=== PATIENT | male | born 1995 | race Hispanic/Latino ===

== ENCOUNTER 2023-11-27 14:14 | Emergency (ER) | payer OTHER ==
[~2023-11-27] VITALS: Ht 172.7 cm; Wt 88.5 kg
[2023-11-27 20:03] VITALS: BP 126/86; PULSE 72; RESP 18; O2SAT 98
[2023-11-27] MEDS ORDERED: POLY17PO4 PO (20:03)
[2023-11-27] MEDS ORDERED: IBUP-2070 PO (20:03)
[2023-11-27] MEDS ORDERED: TAMS-1 PO (20:03)
[2023-11-27] MEDS: TAMSULOSIN HCL 0.4 MG CAP.ER.24H PO ONE (20:04)
== END 2023-11-27 20:14 | disposition home or self-care (01) ==
LOC: EDH 14:14
DX: N20.0 Calculus of kidney (principal); K59.00 Constipation, unspecified
CPT/HCPCS: 74018; 74176

== ENCOUNTER 2024-10-14 11:25 | Emergency (ER) | payer OTHER ==
[~2024-10-14] VITALS: Ht 172.7 cm; Wt 90.7 kg
[~2024-10-14 11:25] MED LIST: IBUP-2070 PO; POLY17PO4 PO; TAMS-55 PO
[2024-10-14] MEDS: ketOROlac 15MG/ML VIAL (15MG/ML) IV ONE ×2 (11:44→12:30)
[2024-10-14] MEDS: hydroMORPHone 0.5 MG SYG (0.5MG/0.5ML) IVP ONE (11:44)
[2024-10-14] MEDS: LACTATED RINGERS 1000ML 1,000 ML IV ONE (11:44)
[2024-10-14 11:48] LABS: BASOPHILS # (AUTO) 0.08 K/uL (0.00-0.20); EOSINOPHILS % (AUTO) 4.8 % (0.0-8.0); IMMATURE GRANULOCYTE ABSOLUTE 0.03 K/uL (0-1); LYMPHOCYTES # (AUTO) 3.7 K/uL (1.0-4.8); LYMPHOCYTES % (AUTO) 44.6 % (21.0-51.0); MEAN CORPUSCULAR HGB CONC 33.5 g/dL (32.0-36.0); MEAN CORPUSCULAR VOLUME 86.5 fL (79-99); MONOCYTES # (AUTO) 0.5 K/uL (0.1-1.0); MONOCYTES % (AUTO) 5.8 % (3.0-13.0); NEUTROPHILS # (AUTO) 3.6 K/uL (1.8-7.7); NEUTROPHILS % (AUTO) 43.4 % (40.0-77.0); PLATELET COUNT (AUTO) 322 K/uL (130-400); RED BLOOD CELL COUNT(AUTO) 4.97 MIL/uL (4.50-6.20); RED CELL DISTRIBUTION WIDTH 12.7 % (11.0-15.5); WHITE BLOOD COUNT (AUTO) 8.3 K/uL (4.8-10.8)
[2024-10-14 11:52] LABS: ADD UA MICROSCOPIC YES; APPEARANCE,URINE CLEAR (CLEAR); BILIRUBIN,URINE NEGATIVE (NEGATIVE); COLOR,URINE LIGHT-YELLOW (YELLOW); GLUCOSE, URINE (UA) NEGATIVE (NEGATIVE); KETONES,URINE NEGATIVE (NEGATIVE); LEUKOCYTE ESTERASE ,URINE NEGATIVE Leu/uL (NEGATIVE); NITRATE,URINE NEGATIVE (NEGATIVE); OCCULT BLOOD,URINE MODERATE (NEGATIVE); PH,URINE 5.5 (5.0-8.0); PROTEIN,URINE 10 mg/dL (NEGATIVE); UROBILINOGEN,URINE 0.2 mg/dL (0.2-1.0)
[2024-10-14 11:53] LABS: MUCUS,URINE FEW LPF (None Seen); SQUAMOUS EPITHELIAL CELL,UR RARE /HPF (0-2); WBC,URINE 0-1 /HPF (0-1)
--- NOTE | 2024-10-14 11:56 | ERN ---
General Chief Complaint: Flank Pain Stated Complaint: PAIN ON RIGHT SIDE OF THE BODY Time Seen by MD: 11:28 History of Present Illness Initial Comments 29-year-old male who presents for sudden onset colicky severe right flank pain that radiates to the right groin. Nausea without vomiting. He was had a kidney stone in the past and this appears to be the same. Allergies: Coded Allergies: No Known Drug Allergies (Unverified Allergy, Unknown, 11/27/23) Home Meds Active Scripts Hydrocodone/Acetaminophen (Hydrocodon-Acetaminophen 5-325) 5 Mg-325 Mg Tablet, 1-2 TAB PO QIDP PRN for pain for 5 Days, #20 TAB 0 Refills Prov:LAUREANO PRICE DO 10/14/24 Ondansetron (Ondansetron Odt) 4 Mg Tab.rapdis, 1 TAB PO Q6HPRN PRN for nausea/vomiting for 5 Days, #15 TAB 0 Refills Prov:LAUREANO PRICE DO 10/14/24 Ibuprofen (Ibuprofen 800 mg Tab) 800 Mg Tab, 800 MG PO Q6H PRN for PAIN, #30 TAB Prov:LAUREANO PRICE DO 10/14/24 Ibuprofen (Ibuprofen) 600 Mg Tablet, 600 MG PO Q6H PRN for PAIN, #30 TAB Prov:KELLI MALCOLM [facility] 11/27/23 Tamsulosin HCl (Flomax) 0.4 Mg Cap.er.24h, 0.4 MG PO DAILY, #14 CAPSULE.DR Prov:KELLI MALCOLM [facility] 11/27/23 Polyethylene Glycol 3350 (Miralax) 17 Gram Powd.pack, 17 GM PO DAILY for 5 Days, #5 EA Prov:KELLI MALCOLM [facility] 11/27/23 Past Medical History Past Medical History: Kidney Stone Past Surgical History: None Family History Family History: Negative Social History Social History: Negative, Lives with family ROS Dictation CONSTITUTIONAL: No chills, no fever, no weakness, no diaphoresis, no malaise. HEAD/FACE: No signs of trauma. EENT: No eye pain, no blurred vision, no tearing, no double vision, no ear pain, no ear discharge, no nose pain, no nasal congestion, no throat pain, no throat swelling, no mouth pain. RESPIRATORY: No cough, no orthopnea, no SOB, no stridor, no wheezing. CARDIOVASCULAR: No chest pain, no edema, no palpitations, no syncope. GASTROINTESTINAL/ABDOMINAL: Right flank pain GENITOURINARY: No abnormal discharge, no dysuria, no frequent urination, no hematuria. No complaints of pain in the genitals. MUSCULOSKELETAL: No back pain, no gout, no joint pain, no joint swelling, no muscle pain, no muscle stiffness, no neck pain. INTEGUMENTARY: No change in color, no change in hair/nails, no dryness, no lesion, no lumps, no rash. NEUROLOGICAL/PSYCH: No anxiety, not depressed, no emotional problem, no headache, no numbness, no pre-existing deficit, no history of seizures, no tremors, no weakness. HEMATOLOGIC/LYMPHATIC: Not anemic, no history of blood clots, no apparent bleeding, no bruising, glands not swollen. All Systems Negative, Except as Noted. Physical Exam Physical Exam Dictation VITAL SIGNS: Reviewed. GENERAL APPEARANCE: Alert, oriented x3, moderate distress due to pain HEAD AND FACE: Non-traumatic. EYES: PERRL, pink conjunctivas, eyelid no trauma, anterior chamber clear. EARS: Pinnas intact and no signs of trauma or erythema. Ear canals clear and no discharge. TMs no erythema. NOSE: No discharge, no bleeding. OROPHARYNX: Mouth normal, teeth no caries, tongue pink. Pharynx clear, no erythema. Tonsils no exudates, no abscesses noted. Mucous membrane moist. NECK: Supple, non-tender, no thyromegaly, no masses, no JVD, no bruits. BREAST: Deferred. CHEST: No tenderness, no crepitus, no paradoxical movement, no retractions. LUNGS: Clear, well-ventilated, symmetric, no rales, no wheezing, no rhonchi, no stridor, good breath sounds bilaterally. HEART: Regular rate, regular rhythm, no murmur, no gallops. VASCULAR: No peripheral edema. ABDOMEN: Soft, positive bowel sounds, nondistended, no guarding, nontender, no rebound, no masses no hepatomegaly, no splenomegaly, no Ferrara's sign, no hernias. RECTAL: Deferred. GENITAL: Deferred. NEUROLOGICAL: Normal speech, gross motor function intact, gross sensory function intact. MUSCULOSKELETAL: Neck nontender, full range of motion, back nontender, full range of motion. EXTREMITIES: Nontender, full range of motion. SKIN: Color pink, dry, no turgor, no rash, no lacerations, no abrasions, no contusions. LYMPHATICS: Deferred. Results Laboratory and Microbiology Lab and Micro Result Laboratory Tests Test 10/14/24 11:43 10/14/24 11:44 White Blood Count 8.3 K/uL (4.8-10.8) Red Blood Count 4.97 MIL/uL (4.50-6.20) Hemoglobin 14.4 g/dL (14.0-18.0) Hematocrit 43.0 % (42-54) Mean Corpuscular Volume 86.5 fL (79-99) Mean Corpuscular Hemoglobin 29.0 pg (27.0-33.0) Mean Corpuscular Hemoglobin Concent 33.5 g/dL (32.0-36.0) Red Cell Distribution Width 12.7 % (11.0-15.5) Platelet Count 322 K/uL (130-400) Mean Platelet Volume 8.1 fL (7.5-10.5) Immature Granulocyte % (Auto) 0.4 % (0-1) Neutrophils (%) (Auto) 43.4 % (40.0-77.0) Lymphocytes (%) (Auto) 44.6 % (21.0-51.0) Monocytes (%) (Auto) 5.8 % (3.0-13.0) Eosinophils (%) (Auto) 4.8 % (0.0-8.0) Basophils (%) (Auto) 1.0 % (0.0-5.0) Neutrophils # (Auto) 3.6 K/uL (1.8-7.7) Lymphocytes # (Auto) 3.7 K/uL (1.0-4.8) Monocytes # (Auto) 0.5 K/uL (0.1-1.0) Eosinophils # (Auto) 0.40 K/uL (0.00-0.70) Basophils # (Auto) 0.08 K/uL (0.00-0.20) Absolute Immature Granulocyte (auto 0.03 K/uL (0-1) Nucleated Red Blood Cells 0.0 % (0.0-0.19) Sodium Level 143 mmol/L (136-145) Potassium Level 3.9 mmol/L (3.5-5.1) Chloride Level 104 mmol/L (101-111) Carbon Dioxide Level 30 mmol/L (21-32) Blood Urea Nitrogen 11 mg/dL (7-18) Creatinine 1.1 mg/dL (0.5-1.3) Glomerular Filtration Rate Calc 92 mL/min (>90) Random Glucose 112 mg/dL (70-105) H Total Calcium 9.2 mg/dL (8.5-10.1) Total Bilirubin 0.4 mg/dL (0.2-1.0) Direct Bilirubin 0.1 mg/dL (0.0-0.3) Aspartate Amino Transf (AST/SGOT) 22 U/L (10-37) Alanine Aminotransferase (ALT/SGPT) 46 U/L (12-78) Alkaline Phosphatase 126 U/L (50-136) Total Protein 7.6 g/dL (6.0-8.3) Albumin 4.2 g/dL (3.5-5.0) Lipase 33 U/L (16-77) Urine Color LIGHT-YELLOW (YELLOW) Urine Appearance CLEAR (CLEAR) Urine pH 5.5 (5.0-8.0) Urine Specific [place] 1.025 (1.001-1.031) Urine Protein 10 mg/dL (NEGATIVE) H Urine Glucose (UA) NEGATIVE mg/dL (NEGATIVE) Urine Ketones NEGATIVE mg/dL (NEGATIVE) Urine Occult Blood MODERATE (NEGATIVE) H Urine Nitrate NEGATIVE (NEGATIVE) Urine Bilirubin NEGATIVE mg/dL (NEGATIVE) Urine Urobilinogen 0.2 mg/dL (0.2-1.0) Urine Leukocyte Esterase NEGATIVE Gino/uL Urine RBC 11-25 /HPF (0-1) H Urine WBC 0-1 /HPF (0-1) Urine Squamous Epithelial Cells RARE /HPF (0-2) Urine Bacteria None /HPF (None Seen) MDM CC: Right flank pain Historian: Patient Comorbidities: None Limitations by social determinants of health: None Differential diagnosis: Kidney stone, appendicitis, other. Vital signs: Stable, remained stable here in the ER. Labs (independently ordered and interpreted by me): No leukocytosis no anemia. Metabolic panel is normal. Liver enzymes normal. Urinalysis shows moderate occult blood otherwise unremarkable. CT of the abdomen and pelvis without contrast (independently ordered and interpreted by me): Mild right hydronephrosis with 2 mm renal stone in the right UVJ. Treatment in ED: Toradol, Dilaudid IV, IV fluids Plan: We will DC. No signs of SIRS or sepsis. No signs of major Kidney damage. He was painless controlled. He was p.o. tolerant. Prescriptions: Ibuprofen, Ballard, Zofran DC to PCP follow up. ED Course Orders Procedure Category Date Status Time Cbc With Differential LAB 10/14/24 Complete 11: Urinalysis Profile LAB 10/14/24 Complete 11: Lactated Ringers PHA 10/14/24 Complete 1000ml (Lactated 12:00 Ct Abdomen/Pelvis W/O CT 10/14/24 Resulted Contrast 11: Lipase LAB 10/14/24 Complete 11: Basic Metabolic Panel LAB 10/14/24 Complete 11: Hepatic Function Panel LAB 10/14/24 Complete 11: Ketorolac PHA 10/14/24 Complete Tromethamine 15mg/Ml 12:00 Hydromorphone 0.5mg PHA 10/14/24 Complete Syg (Dilaudid 0.5mg 12:00 Hydromorphone 1 Mg PHA 10/14/24 In Process Inj (Dilaudid 1mg Inj 13:30 Ketorolac PHA 10/14/24 In Process Tromethamine 15mg/Ml 13:30 Hydromorphone 1 Mg PHA 10/14/24 Complete Inj (Dilaudid 1mg Inj 12:24 Current Medications Medications (Trade) Dose Ordered Sig/Elisabeth Route PRN Reason Start Time Stop Time Status Last Admin Dose Admin Hydromorphone HCl (DiLAUDid 0.5MG INJ) 0.5 mg ONCE ONCE IVP 10/14/24 12:00 10/14/24 12:01 DC 10/14/24 11:44 Hydromorphone HCl (DiLAUDid 1MG INJ) 1 mg ONCE ONCE IVP 10/14/24 13:30 10/14/24 13:31 10/14/24 12:30 Hydromorphone HCl (DiLAUDid 1MG INJ) 1 mg STK-MED ONCE .ROUTE 10/14/24 12:24 10/14/24 12:24 DC Ketorolac Tromethamine (toRADol) 15 mg ONCE ONCE IV 10/14/24 12:00 10/14/24 12:01 DC 10/14/24 11:44 Ketorolac Tromethamine (toRADol) 15 mg ONCE ONCE IV 10/14/24 13:30 10/14/24 13:31 10/14/24 12:30 Lactated Ringer's 1,000 ml @ 0 mls/hr ONCE ONCE IV 10/14/24 12:00 10/14/24 12:01 DC 10/14/24 11:44 Vital Signs Date Time Temp Pulse Resp B/P (MAP) Pulse Ox O2 Delivery O2 Flow Rate FiO2 10/14/24 11:30 97.9 86 22 156/90 98 Room Air 0 DX & DISP Disposition: Discharge Departure Impression: Primary Impression: Right nephrolithiasis Condition: Stable Scripts Hydrocodone/Acetaminophen (Hydrocodon-Acetaminophen 5-325) 5 Mg-325 Mg Tablet 1-2 TAB PO QIDP PRN for pain for 5 Days, #20 TAB 0 Refills Prov: LAUREANO PRICE DO 10/14/24 Ondansetron (Ondansetron Odt) 4 Mg Tab.rapdis 1 TAB PO Q6HPRN PRN for nausea/vomiting for 5 Days, #15 TAB 0 Refills Prov: LAUREANO PRICE DO 10/14/24 Ibuprofen (Ibuprofen 800 mg Tab) 800 Mg Tab 800 MG PO Q6H PRN for PAIN, #30 TAB Prov: LAUREANO PRICE DO 10/14/24 Additional Instructions: A 2 mm kidney stone in the right side. This is causing your pain. As we discussed, most kidney stones of the size will pass on their own. Drink plenty of liquids. I have prescribed ibuprofen 800 mg tabs to use as needed for pain. Take this 3 times per day. I have also prescribed Ballard tabs to use as needed for pain. You can take these 4 times per day. I have prescribed ondansetron dissolvable tabs to use as needed for nausea and vomiting. As we discussed, please follow up with the primary doctor. You may need further studies or referral to a specialist. Please return to the emergency department if you develop any high fever, persistent vomiting, significant pain that does not respond to the pain med icine, or any other concerning symptom. Referrals: JOE GHOTRA MD (PCP) LAUREANO PRICE DO Oct 14, 2024 11:56
[2024-10-14 11:58] LABS: CREATININE 1.1 mg/dL (0.5-1.3); POTASSIUM 3.9 mmol/L (3.5-5.1)
[2024-10-14 12:02] LABS: ALBUMIN 4.2 g/dL (3.5-5.0); BILIRUBIN,DIRECT 0.1 mg/dL (0.0-0.3); BILIRUBIN,TOTAL 0.4 mg/dL (0.2-1.0); TOTAL PROTEIN, SERUM 7.6 g/dL (6.0-8.3)
--- NOTE | 2024-10-14 12:05 | HMCIMG ---
CT ABDOMEN/PELVIS W/O CONTRAST HISTORY: Right flank pain COMPARISON: 11/27/2023 TECHNIQUE: Multiple sequential axial images of the abdomen and pelvis were obtained from the dome of the diaphragm through symphysis pubis. Patient was not given contrast through intravenous route. Oral contrast was not given. FINDINGS: No pleural effusion is seen bilaterally. There is no evidence of parenchymal disease or pulmonary nodule of the visualized lower lungs. Degenerative changes of the thoracolumbar spine are present. The heart is not enlarged. Liver measures 19 cm. The liver, spleen, adrenal glands and pancreas are unremarkable. No hydronephrosis is seen on the left. There is mild right hydronephrosis with 2 mm renal stone in the right UV junction. Small bilateral renal pelvic stones are seen with the largest on the right measuring 4 mm. Fecal material is seen in the colon. There are normal size retroperitoneal and mesenteric lymph nodes. No ascites is seen. No CT evidence of acute appendicitis is seen. Pelvic sidewalls are symmetric bilaterally. Bladder is poorly distended. IMPRESSION: 1. There is mild right hydronephrosis with 2 mm renal stone in the right UV junction. Small bilateral renal pelvic stones are seen with the largest on the right measuring [address] was performed with one or more following dose reduction techniques: automated exposure control, adjustment of the mA and kv according to patient's size, or use of a iterative reconstruction technique.
[2024-10-14] MEDS ORDERED: ONDA-243 PO (12:17)
[2024-10-14] MEDS ORDERED: IBUP-2077 PO (12:17)
[2024-10-14] MEDS ORDERED: HYDR-4060 PO (12:17)
[2024-10-14] MEDS: hydroMORPHone 1 MG INJ ONE (12:30)
[2024-10-14] MEDS: hydroMORPHone 1 MG INJ IVP ONE (12:30)
[2024-10-14 12:44] VITALS: BP 127/81; PULSE 71; RESP 14; TEMP 98; O2SAT 99
== END 2024-10-14 12:49 | disposition home or self-care (01) ==
LOC: EDH 11:25
DX: N13.2 Hydronephrosis with renal and ureteral calculous obstruction (principal); Z87.442 Personal history of urinary calculi; Z79.899 Other long term (current) drug therapy
CPT/HCPCS: 99285; 74176; 96374; 96361; 96375; 80076; 80048; 83690; 85025; 81001; 36415; 96376; J1885 ×2; J1171 ×2; J7120

== ENCOUNTER 2024-11-29 17:44 | Emergency (ER) | payer OTHER ==
[~2024-11-29] VITALS: Ht 172.7 cm; Wt 90.7 kg
[~2024-11-29 17:44] MED LIST changes: +HYDR-4060 PO; +IBUP-2077 PO; +ONDA-243 PO
[2024-11-29] MEDS ORDERED: AMOX1TAB16 PO (18:05)
--- NOTE | 2024-11-29 18:05 | ERN ---
ED Note History of Present Illness Stated Complaint: SINUS/ HEADACHE, DIZZINESS/ POSSIBLE UTI Chief Complaint: Congestion Time Seen by MD: 17:44 Time Seen by Midlevel: 17:44 Dictation: The patient is a 29-year-old male with a history of kidney stones who presents to the emergency department with complaints of left sinus pressure that radiates to left temporal area associated with dizziness onset five days ago. Patient reports he has a history of sinusitis and reports he has been taking his nasal spray but reports no improvement. Reports occasional clear nasal discharge. Patient denies any fevers, head trauma. Allergies: Coded Allergies: No Known Drug Allergies (Unverified Allergy, Unknown, 11/27/23) Home Meds Active Scripts Hydrocodone/Acetaminophen (Hydrocodon-Acetaminophen 5-325) 5 Mg-325 Mg Tablet, 1-2 TAB PO QIDP PRN for pain for 5 Days, #20 TAB 0 Refills Prov:LAUREANO PRICE DO 10/14/24 Ondansetron (Ondansetron Odt) 4 Mg Tab.rapdis, 1 TAB PO Q6HPRN PRN for nausea/vomiting for 5 Days, #15 TAB 0 Refills Prov:LAUREANO PRICE DO 10/14/24 Ibuprofen (Ibuprofen 800 mg Tab) 800 Mg Tab, 800 MG PO Q6H PRN for PAIN, #30 TAB Prov:LAUREANO PRICE DO 10/14/24 Ibuprofen (Ibuprofen) 600 Mg Tablet, 600 MG PO Q6H PRN for PAIN, #30 TAB Prov:KELLI MALCOLM [facility] 11/27/23 Tamsulosin HCl (Flomax) 0.4 Mg Cap.er.24h, 0.4 MG PO DAILY, #14 CAPSULE. Prov:KELLI MALCOLM [facility] 11/27/23 Polyethylene Glycol 3350 (Miralax) 17 Gram Powd.pack, 17 GM PO DAILY for 5 Days, #5 EA Prov:KELLI MALCOLM [facility] 11/27/23 Past Medical History Past Medical History: Kidney Stone Surgical History: None Family History: Negative Social History: Negative, Lives with family RN Note Reviewed/Agreed w/PFSH: Yes Review of System Dictation Constitutional: Negative for fever,chills, and weight loss Eyes: Negative for injury, pain,redness, and discharge ENT: Negative for injury,pain or swelling Cardiovascular: Negative for chest pain, palpitations, and edema Respiratory: Negative for shortness of breath, cough, and wheezing, Abdomen/GI: Negative for abdominal pain, nausea, vomiting, diarrhea, and constipation Back: Negative for injury and pain : Negative for injury, bleeding and discharge MS/Extremity: Negative for injury and deformity Skin: Negative for rash, and discoloration Neuro: Negative for weakness, numbness, tingling, and seizure positive for headache Psych: Negative for suicide ideation, homicidal ideation, and hallucinations Initial Vital Sign VS Vital Signs Date Time Temp Pulse Resp B/P (MAP) Pulse Ox O2 Delivery O2 Flow Rate FiO2 11/29/24 17:45 98.1 71 16 138/95 100 Room Air 0 Physical Exam Dictation Vital Signs reviewed General Appearance: Alert, oriented x 3, no acute distress, well developed, nourished. Head and Face: non-traumatic. Eyes: PERRL, pink conjunctivas, eyelid no trauma, anterior chamber with arcus senilis. Ears: Pinnas intact and no signs of trauma or + erythema ear canals clear and no discharge TM no erythema Nose: No discharge, no bleeding. sinus tenderness Oropharynx: Mouth normal, tongue pink. pharynx clear,no erythema, tonsils no exudates, no abscesses noted, mucous membrane moist Neck: Supple, non-tender, no thyromegaly, no masses, no JVD, no bruits Breast:Deferred Chest:No tenderness, no crepitus, no paradoxical movement, no retractions Lungs:Clear, well-ventilated, symmetric, no rales, no wheezing, no rhonchi, no stridor, good breath sounds bilaterally Heart: Regular rate, regular rhythm, no murmur, no gallops Vascular: no peripheral edema, Abdomen: Soft, positive bowel sounds, nondistended, no guarding, nontender, no rebound, no masses no hepatomegaly, no splenomegaly, no Ferrara's sign, no hernias. Rectal: Deferred Genital: Deferred Neurological: Normal speech, motor function intact, sensory function intact , upper extremities equal in strength, lower extremities equal in strength Musculoskeletal: Neck nontender, full range of motion, back nontender, full range of motion, Extremities: nontender, full range of motion Skin: Color pink, dry, no turgor, no rash, no lacerations, no abrasions, no contusions. Lymphatic: Deferred Results (Laboratory/Radiology) Labs Reviewed?: Yes ED Course ED Course Vital Signs Date Time Temp Pulse Resp B/P (MAP) Pulse Ox O2 Delivery O2 Flow Rate FiO2 11/29/24 17:45 98.1 71 16 138/95 100 Room Air 0 Medical Decision Making MDM The patient is a 29-year-old male with a history of kidney stones who presents to the emergency department with complaints of left sinus pressure that radiates to left temporal area associated with dizziness onset five days ago. Patient reports he has a history of sinusitis and reports he has been taking his nasal spray but reports no improvement. Reports occasional clear nasal discharge. Patient denies any fevers, head trauma. Patient has symptoms consistent with sinusitis. Patient reports symptomatic treatment but reports no improvement. Patient at this time is neurologically intact. Stable vital signs. In no acute distress. Will be discharged with treatment of sinusitis. Differential diagnosis: Sinusitis, tension headache, URI Need for hospitalization: Patient does not meet criteria for hospitalization. There are no social concerns with this patient. DX & DISP Disposition: Discharge Departure Impression: Primary Impression: Sinusitis Condition: Stable Scripts Amoxicillin/Potassium Clav (Amox Tr-K Clv 875-125 mg Tab) 875 Mg-125 Mg Tablet 1 TAB PO BID for 5 Days, #10 TAB 0 Refills Prov: LUZ MARIA [facility] [employer] 11/29/24 Additional Instructions: Please follow up with the primary doctor in 1-2 days. Take medications as prescribed. If symptoms worsen please return to ER. FOLLOW-UP WITH PRIMARY CARE PROVIDER IN 1 TO 2 DAYS. TAKE MEDICATIONS DIRECTED HERE IN THE EMERGENCY ROOM. OKAY TO CONTINUE HOME MEDICATIONS UNLESS OTHERWISE DISCUSSED DURING YOUR VISIT IN THE EMERGENCY ROOM TODAY. RETURN TO YOUR NEAREST EMERGENCY ROOM IF SYMPTOMS WORSEN OR IF THERE IS NO IMPROVEMENT. CALL 911 IF YOU NEED IMMEDIATE ASSISTANCE. TAKE TYLENOL OR MOTRIN [id number] NEEDED AND IF NO CONTRAINDICATIONS ARE PRESENT. INCREASE ORAL HYDRATION. A WOUND CULTURE OR URINE CULTURE WAS ORDERED HERE IN THE EMERGENCY ROOM DEPARTMENT PLEASE FOLLOW-UP WITH PRIMARY CARE PROVIDER AND ADVISE THEM TO GET REPEAT PORTS FROM OUR FACILITY. IF YOU HAD ANY [place] WRAP/SPLINTS THAT WERE APPLIED HERE, PLEASE DO NOT REMOVE THEM UNTIL YOU SEE YOUR PRIMARY CARE OR SPECIALTY. Referrals: JOE GHOTRA MD (PCP) Time of Disposition: 18:04 I have reviewed the case, and I agree with, Diagnosis and Plan LUZ MARIA FULTON [facility] November 29, 2024 18:05
[2024-11-29 18:35] VITALS: BP 138/95; PULSE 71; RESP 16; TEMP 98.1; O2SAT 100
[2024-11-29] MEDS: acetaMINOPHEN 500 MG TABLET PO SCH (18:39)
== END 2024-11-29 18:42 | disposition home or self-care (01) ==
LOC: EDH 17:44
DX: J32.9 Chronic sinusitis, unspecified (principal)
CPT/HCPCS: 99283

== ENCOUNTER 2025-02-09 06:22 | Day surgery (SDC) | payer OTHER ==
[2025-02-08 10:41] LABS: IMMATURE GRANULOCYTE ABSOLUTE 0.02 K/uL (0-1); NUCLEATED RED BLOOD CELLS 0.0 % (0.0-0.19); PLATELET COUNT (AUTO) 285 K/uL (130-400); RED BLOOD CELL COUNT(AUTO) 5.01 MIL/uL (4.50-6.20); RED CELL DISTRIBUTION WIDTH 12.8 % (11.0-15.5); WHITE BLOOD COUNT (AUTO) 6.2 K/uL (4.8-10.8)
[2025-02-08 10:44] VITALS: BP 119/81; PULSE 74; RESP 13; TEMP 97.9
--- NOTE | 2025-02-08 10:46 | EKG ---
[facility] Test Date: 2025-02-08 Test Time: 10:31:40 Pat Name: MONIKA PAIGE Department: [facility] Room: Gender: Mounter Sousaphones: [id number] : 1995 Requested By: PHILIP ALFARO Order Number: [id number] Reading MD: Selena Chacon Measurements Intervals [place] Rate: 67 P: -3 ME: 156 QRS: 59 QRSD: 103 T: 28 QT: 389 QTc: 410 Interpretive Statements Sinus rhythm No previous ECG available for comparison Electronically Signed On 02-08-2025 12:12:24 CDT by Selena Chacon Please click the below link to view image of tracing.
[2025-02-08 10:50] LABS: INR 1.03 (0.85-1.15)
[2025-02-08 10:54] LABS: ASPARTATE AMINOTRANSFERASE 21.0 U/L (10-37); CREATININE 0.9 mg/dL (0.5-1.3); GLOMERULAR FILTR. RATE CALC 117.0 mL/min (>90); GLUCOSE,RANDOM 99.0 mg/dL (70-105); SODIUM SERUM 145.0 mmol/L (136-145); TOTAL PROTEIN, SERUM 7.4 g/dL (6.0-8.3); UREA NITROGEN, BLOOD 14.0 mg/dL (7-18)
[~2025-02-09] VITALS: Ht 172.7 cm; Wt 90.4 kg
[2025-02-09] VITALS (14 sets, daily range): BP systolic 102–118; BP diastolic 58–83; PULSE 81–91; RESP 15–28; TEMP 97.1–97.6
[2025-02-09] MEDS: LACTATED RINGERS 1000ML 1,000 ML IV ONE (06:47)
[2025-02-09] MEDS ORDERED: LIDOCAINE HCL 1% 10 ML VIAL ONE (07:25)
[2025-02-09] MEDS ORDERED: LIDOCAINE HCL 2% PF 20 ML JEL DISP.SYRIN MM ONE (07:25)
[2025-02-09] MEDS ORDERED: LIDOCAINE HCL 1% 20 ML VIAL ONE (07:25)
[2025-02-09] MEDS ORDERED: LIDOCAINE 1%-EPI 1:100,000 20 ML VIAL ONE (07:29)
[2025-02-09] MEDS ORDERED: GLYCOPYRROLATE 0.2 MG/ML 5 ML VIAL ONE (08:01)
[2025-02-09] MEDS ORDERED: NEOSTIGMINE METHYLSULFATE 1MG/ML IV ONE (08:01)
[2025-02-09] MEDS ORDERED: LIDOCAINE PF 100MG/5ML (2%) SYRINGE 5ML ONE (08:01)
[2025-02-09] MEDS ORDERED: MIDAZOLAM HCL 1 MG/ML 2ML VIAL ONE (08:04)
[2025-02-09] MEDS ORDERED: SUGAMMADEX SODIUM 200 MG/2 ML VIAL IV ONE (08:49)
--- NOTE | 2025-02-09 08:57 | OP ---
Operative Note: DATE OF PROCEDURE: 02/09/25 SURGEON: PHILIP ALFARO MD FAN BLADE TRUER: [None] ANESTHESIA: [General] ANESTHESIOLOGIST/ADMINISTRATIVE SUPPORT MANAGER: [] PREOPERATIVE DIAGNOSIS: [anal Fissure] POSTOPERATIVE DIAGNOSIS: [Anal Fissure, anal tag] SYNOPSIS: [posterior midline anal fissure with hypertonic anal sphincter] PROCEDURE: [Lateral internal sphincterotomy] ESTIMATED BLOOD LOSS: [minimal] INDICATIONS: [The patient is a very pleasant 29-year-old male who presents with an anal fissure that has been refractory to medical management. He was offered operative management. Complications, risks alternatives and benefits were discussed with him and his family in detail. Risks include infection, bleeding, injury to sphincter complex causing incontinence, need for further procedures and recurrence of disease. All questions were answered to their satisfaction and they all wished to proceed with the operation.] DESCRIPTION OF PROCEDURE: [The patient is brought to the operating theater and placed supine on the operating table. After appropriate general anesthesia was administered and IV antibiotics given the patient is placed in the dorsal lithotomy position. Perineum was prepped and draped in appropriate sterile surgical fashion. Local anesthetic was injected the perianal block. The patient is noted to have a posterior midline anal fissure and a anal tag in the outside. Attention was drawn to the left lateral anus were the intersphincteric groove was identified. A [place] blade was inserted and the internal sphincter was cut to the apex of the fissure. The defect was closed with a single chromic suture. Excellent hemostasis was achieved. The posterior midline anal tag was removed to allow for better healing. This was passed off the table as specimen. There were no complications. The instrument, sponge and needle count were reported as correct x2 by nursing staff. The anorectal ring was intact at the end of the procedure.] PHILIP ALFARO MD Feb 09, 2025 08:57
== END 2025-02-09 10:40 | disposition home or self-care (01) ==
LOC: DAH 06:22
PROVIDERS: ATTEND Surgery
DX: K60.2 Anal fissure, unspecified (principal); K64.4 Residual hemorrhoidal skin tags; K59.4 Anal spasm; L29.0 Pruritus ani; K21.9 Gastro-esophageal reflux disease without esophagitis; Z79.01 Long term (current) use of anticoagulants; Z79.899 Other long term (current) drug therapy
CPT/HCPCS: 80053; 85025; 85610; 85730; 36415; 93005; 46080; 88305; A6260; A4663; J7120 ×2; A4649 ×2; J3010; J3490 ×4; J1100; J0665 ×2; J2003; J2250; J2704; J2710; J0690 ×2; A4930 ×2; A4215; A4223; A4222; A4221

== ENCOUNTER 2025-06-07 12:36 | Emergency (ER) | payer OTHER ==
[~2025-06-07] VITALS: Ht 172.7 cm; Wt 88.5 kg
[2025-06-07 12:53] LABS: NUCLEATED RED BLOOD CELLS 0.0 % (0.0-0.19); PLATELET COUNT (AUTO) 303.0 K/uL (130-400); RED BLOOD CELL COUNT(AUTO) 4.88 MIL/uL (4.50-6.20); RED CELL DISTRIBUTION WIDTH 12.9 % (11.0-15.5); WHITE BLOOD COUNT (AUTO) 8.2 K/uL (4.8-10.8)
--- NOTE | 2025-06-07 12:59 | ERN ---
General Chief Complaint: Back Pain-No Injury Stated Complaint: BACK PAIN Time Seen by MD: 12:37 Source: patient History of Present Illness Initial Comments Patient is a 30-year-old male coming in complaining of left flank pain. Per patient the left flank pain began an hour prior to arrival. He states that the pain is sharp 10/10 intensity. He states he had does has a history of kidney stones. Allergies: Coded Allergies: No Known Drug Allergies (Unverified Allergy, Unknown, 11/27/23) Home Meds No Active Prescriptions or Reported Meds Past Medical History Past Medical History: Kidney Stone Past Surgical History: None Family History Family History: Negative Social History Social History: Negative, Lives with family ROS Dictation CONSTITUTIONAL: No chills, no fever, no weakness, no diaphoresis, no malaise. HEAD/FACE: No signs of trauma. EENT: No eye pain, no blurred vision, no tearing, no double vision, no ear pain, no ear discharge, no nose pain, no nasal congestion, no throat pain, no throat swelling, no mouth pain. RESPIRATORY: No cough, no orthopnea, no SOB, no stridor, no wheezing. CARDIOVASCULAR: No chest pain, no edema, no palpitations, no syncope. GASTROINTESTINAL/ABDOMINAL: No abdominal pain, no constipation, no diarrhea, no nausea, no vomiting. GENITOURINARY: No abnormal discharge, no dysuria, no frequent urination, no hematuria. No complaints of pain in the genitals. MUSCULOSKELETAL: back pain, no gout, no joint pain, no joint swelling, no muscle pain, no muscle stiffness, no neck pain. INTEGUMENTARY: No change in color, no change in hair/nails, no dryness, no lesion, no lumps, no rash. NEUROLOGICAL/PSYCH: No anxiety, not depressed, no emotional problem, no hea dache, no numbness, no pre-existing deficit, no history of seizures, no tremors, no weakness. HEMATOLOGIC/LYMPHATIC: Not anemic, no history of blood clots, no apparent bleeding, no bruising, glands not swollen. All Systems Negative, Except as Noted. Physical Exam Physical Exam Dictation VITAL SIGNS: Reviewed. GENERAL APPEARANCE: Alert, oriented x3, no acute distress, obese. HEAD AND FACE: Non-traumatic. EYES: PERRL, pink conjunctivas, eyelid no trauma, anterior chamber clear. EARS: Pinnas intact and no signs of trauma or erythema. Ear canals clear and no discharge. TMs no erythema. NOSE: No discharge, no bleeding. OROPHARYNX: Mouth normal, teeth no caries, tongue pink. Pharynx clear, no erythema. Tonsils no exudates, no abscesses noted. Mucous membrane moist. NECK: Supple, non-tender, no thyromegaly, no masses, no JVD, no bruits. BREAST: Deferred. CHEST: No tenderness, no crepitus, no paradoxical movement, no retractions. LUNGS: Clear, well-ventilated, symmetric, no rales, no wheezing, no rhonchi, no stridor, good breath sounds bilaterally. HEART: Regular rate, regular rhythm, no murmur, no gallops. VASCULAR: No peripheral edema. ABDOMEN: Soft, positive bowel sounds, nondistended, no guarding, left CVA angle tenderness, no rebound, no masses no hepatomegaly, no splenomegaly, no Ferrara's sign, no hernias. RECTAL: Deferred. GENITAL: Deferred. NEUROLOGICAL: Normal speech, gross motor function intact, gross sensory function intact. MUSCULOSKELETAL: Neck nontender, full range of motion, back nontender, full range of motion. EXTREMITIES: Nontender, full range of motion. SKIN: Color pink, dry, no turgor, no rash, no lacerations, no abrasions, no contusions. LYMPHATICS: Deferred. Results Laboratory and Microbiology Lab and Micro Result Laboratory Tests Test 06/07/25 12:47 06/07/25 14:22 White Blood Count 8.2 K/uL (4.8-10.8) Red Blood Count 4.88 MIL/uL (4.50-6.20) Hemoglobin 14.3 g/dL (14.0-18.0) Hematocrit 42.9 % (42-54) Mean Corpuscular Volume 87.9 fL (79-99) Mean Corpuscular Hemoglobin 29.3 pg (27.0-33.0) Mean Corpuscular Hemoglobin Concent 33.3 g/dL (32.0-36.0) Red Cell Distribution Width 12.9 % (11.0-15.5) Platelet Count 303 K/uL (130-400) Mean Platelet Volume 8.4 fL (7.5-10.5) Nucleated Red Blood Cells 0.0 % (0.0-0.19) Sodium Level 139 mmol/L (136-145) Potassium Level 3.7 mmol/L (3.5-5.1) Chloride Level 102 mmol/L (101-111) Carbon Dioxide Level 28 mmol/L (21-32) Blood Urea Nitrogen 18 mg/dL (7-18) Creatinine 1.1 mg/dL (0.5-1.3) Glomerular Filtration Rate Calc 91 mL/min (>90) Random Glucose 129 mg/dL (70-105) H Total Calcium 9.0 mg/dL (8.5-10.1) Urine Color YELLOW (YELLOW) Urine Appearance CLEAR (CLEAR) Urine pH 7.0 (5.0-8.0) Urine Specific Boyce 1.010 (1.001-1.031) Urine Protein NEGATIVE mg/dL (NEGATIVE) Urine Glucose (UA) NEGATIVE mg/dL (NEGATIVE) Urine Ketones NEGATIVE mg/dL (NEGATIVE) Urine Occult Blood MODERATE (NEGATIVE) H Urine Nitrate NEGATIVE (NEGATIVE) Urine Bilirubin NEGATIVE mg/dL (NEGATIVE) Urine Urobilinogen 0.2 mg/dL (0.2-1.0) Urine Leukocyte Esterase NEGATIVE Gino/uL Urine RBC 26-50 /HPF (0-1) H Urine WBC 0-1 /HPF (0-1) Urine Squamous Epithelial Cells None Seen /HPF (0-2) Urine Bacteria Rare /HPF (None Seen) Labs Reviewed?: Yes EKG/XRAY/US/CT/[place] [address] IMAGING REPORT Signed PATIENT: MONIKA PAIGE MR#: [id number] : 1995 SEX: M AGE: 30 LOCATION: [facility] ORDER [id number] STATUS: REG REPORT#: [id number] SERVICE 1240 REASON: left flank pain ORDERING PHYSICIAN: HENRRY MCGEE MD PROCEDURE: ABD PEL W - CT ABDOMEN/PELVIS W/CONTRAST EXAM: CT Abdomen and Pelvis with IV contrast CLINICAL HISTORY: left flank pain TECHNIQUE: Axial computed tomography images of the abdomen and pelvis with intravenous contrast. CONTRAST: with intravenous contrast. COMPARISON: None provided. FINDINGS: LUNG BASES: The lung bases appear clear. No pleural effusions are seen. LIVER: Unremarkable. GALLBLADDER AND BILE DUCTS: The gallbladder appears within normal limits. No radioopaque gallstones are seen. No biliary ductal dilatation is evident. PANCREAS: Unremarkable. SPLEEN: Unremarkable. ADRENAL GLANDS: Unremarkable. KIDNEYS, URETERS, AND BLADDER: Mild left-sided hydronephrosis and hydroureter with a 3 mm distal left ureteral calculus. Right kidney is normal size with a 2 mm calculus. Delayed enhancement of the left kidney which is in cortical medullary phase. STOMACH AND BOWEL: Unremarkable appearance of the stomach and bowel. No evidence of bowel obstruction. No evidence suggesting enteritis or colitis. APPENDIX: No evidence of acute appendicitis on CT examination. PERITONEUM: No free fluid. No free air. LYMPH NODES: No lymphadenopathy is evident. REPRODUCTIVE: Unremarkable as visualized. VASCULATURE: No evidence of abdominal aortic aneurysm. BONES: No aggressive appearing osseous lesion. No acute osseous pathology evident. IMPRESSION: Stone in the left kidney causing mild proximal obstructive uropathy /[place] DICTATED BY: GUNNER ENCARNACION MD DATE: 06/07/251446 ELECTRONICALLY SIGNED BY: GUNNER ENCARNACION MD DATE: 06/07/251446 [facility] MDM: Differential diagnosis: URETEROLITHIASIS, KIDNEY STONE, Rationale: Tests considered and ordered secondary to shared decision making include: Previous outside records reviewed: Old ER visits. Risk of complication and/or morbidity or mortality of patient management: None Medications-Per medication reconciliation Need for hospitalization: Patient does not meet criteria for hospitalization. Need for emergency major/minor surgery: No PATIENT IS A 30-YEAR-OLD FEMALE COMPLAINING OF LEFT FLANK PAIN. CT OF THE ABDOMEN DISCLOSE A 3 MM KIDNEY STONE FLUIDS WERE GIVEN ANTI-INFLAMMATORIES. PATIENT WILL BE DISCHARGED IN STABLE CONDITION WITH A DIAGNOSIS OF THE URETEROLITHIASIS. ED Course Orders Procedure Category Date Status Time Cbc Without LAB 06/07/25 Complete Differential 12:40 Basic Metabolic Panel LAB 06/07/25 Complete 12:40 Urinalysis LAB 06/07/25 Complete W/Microscopic 12:40 Ct Abdomen/Pelvis CT 06/07/25 Resulted W/Contrast 12:40 0.9%Nacl 1000ml (Ns PHA 06/07/25 Complete 1000ml) 13:00 Ketorolac PHA 06/07/25 Complete Tromethamine 30mg/Ml 13:00 Iohexol (Omnipaque) PHA 06/07/25 Complete 13:10 Tramadol Hcl (Ultram) PHA 06/07/25 Complete 14:30 Morphine 2mg Syg PHA 06/07/25 Complete (Morphine 2mg Syg) 14:30 0.9%Nacl 1000ml (Ns PHA 06/07/25 Complete 1000ml) 15:00 Orphenadrine Citrate PHA 06/07/25 Complete (Norflex) 15:00 Current Medications Medications (Trade) Dose Ordered Sig/Elisabeth Route PRN Reason Start Time Stop Time Status Last Admin Dose Admin Iohexol (Omnipaque) 75 ml STK-MED ONCE IV 06/07/25 13:10 06/07/25 13:10 DC Ketorolac Tromethamine (toRADol) 30 mg ONCE ONCE IVP 06/07/25 13:00 06/07/25 13:01 DC 06/07/25 13:14 Morphine Sulfate (morPHINE 2MG SYG) 2 mg ONCE ONCE IVP 06/07/25 14:30 06/07/25 14:31 DC 06/07/25 14:14 Orphenadrine Citrate (Norflex) 60 mg ONCE ONCE IM 06/07/25 15:00 06/07/25 15:01 DC 06/07/25 15:11 Sodium Chloride 1,000 ml @ 0 mls/hr ONCE ONCE IV 06/07/25 13:00 06/07/25 13:01 DC 06/07/25 13:14 Sodium Chloride 1,000 ml @ 0 mls/hr ONCE ONCE IV 06/07/25 15:00 06/07/25 15:01 DC 06/07/25 15:11 Tramadol HCl (UltRAM) 50 mg ONCE ONCE PO 06/07/25 14:30 06/07/25 14:09 DC Vital Signs Date Time Temp Pulse Resp B/P (MAP) Pulse Ox O2 Delivery O2 Flow Rate FiO2 06/07/25 12:37 98.4 73 18 128/86 100 DX & DISP Disposition: Discharge Departure Impression: Primary Impression: Left ureteral calculus Condition: Stable Scripts Ketorolac Tromethamine (Ketorolac Tromethamine) 10 Mg Tablet 1 TAB PO Q6HPRN PRN for pain for 5 Days, #20 TAB 0 Refills Prov: HENRRY MCGEE MD 06/07/25 Cephalexin Monohydrate (Keflex) 500 Mg Cap 1 CAP PO BID for 10 Days, #20 CAP 0 Refills Prov: HENRRY MCGEE MD 06/07/25 Additional Instructions: FOLLOW-UP WITH PRIMARY CARE PROVIDER IN 1 TO 2 DAYS. TAKE MEDICATIONS DIRECTED HERE IN THE EMERGENCY ROOM. OKAY TO CONTINUE HOME MEDICATIONS UNLESS OTHERWISE DISCUSSED DURING YOUR VISIT IN THE EMERGENCY ROOM TODAY. RETURN TO YOUR NEAREST EMERGENCY ROOM IF SYMPTOMS WORSEN OR IF THERE IS NO IMPROVEMENT. CALL 911 IF YOU NEED IMMEDIATE ASSISTANCE. TAKE TYLENOL [id number] NEEDED AND IF NO CONTRAINDICATIONS ARE PRESENT. INCREASE ORAL HYDRATION. A WOUND CULTURE OR URINE CULTURE WAS ORDERED HERE IN THE EMERGENCY ROOM DEPARTMENT PLEASE FOLLOW-UP WITH PRIMARY CARE PROVIDER AND ADVISE THEM TO GET REPORTS FROM OUR FACILITY. IF YOU HAD ANY KENYATTA WRAP/SPLINTS THAT WERE APPLIED HERE, PLEASE DO NOT REMOVE THEM UNTIL YOU SEE YOUR PRIMARY CARE OR SPECIALTY. REFERRALS: Referrals: JOE GHOTRA MD (PCP) JOJO SANZ MD Time of Disposition: 15:33 HENRRY MCGEE MD Jun 07, 2025 12:59
[2025-06-07 13:09] LABS: CREATININE 1.1 mg/dL (0.5-1.3); GLOMERULAR FILTR. RATE CALC 91.0 mL/min (>90); GLUCOSE,RANDOM 129.0 mg/dL (70-105); SODIUM SERUM 139.0 mmol/L (136-145); UREA NITROGEN, BLOOD 18.0 mg/dL (7-18)
[2025-06-07] MEDS ORDERED: IOHEXOL-350 75 ML VIAL IV ONE (13:10)
[2025-06-07] MEDS: 0.9%NACL 1000ML 1,000 ML IV ONE ×2 (13:14→15:11)
--- NOTE | 2025-06-07 13:48 | HMCIMG ---
EXAM: CT SCAN OF THE ABDOMEN AND PELVIS WITH CONTRAST Clinical statement: Left flank pain. STUDY PROTOCOL: CT radiation dose protocol was performed in accordance with the principles of ALARA. A multislice CT scan of the abdomen and pelvis was done with intravenous contrast, including delayed renal excretory phase imaging. Sections are obtained from the diaphragms to the inguinal region. RADIATION DOSE: CTDIvol 26.70 mGy; DLP 1386.20 mGy???cm. CONTRAST: Standard dose of intravenous contrast administered. COMPARISON: None provided. FINDINGS: LUNG BASE: Visualized lung bases are clear. No pleural effusion, consolidation, or basal infiltrate is seen. LIVER: Liver is unremarkable in size, contour, and enhancement without focal lesion. No intrahepatic or extrahepatic biliary ductal dilatation. GALL BLADDER: Gallbladder appears normal in size and wall thickness. No radiopaque gallstones or pericholecystic fluid. Biliary tree is normal in caliber. PANCREAS: Pancreas is normal in size and contour without ductal dilatation, peripancreatic fat stranding, or fluid collection. SPLEEN: Spleen is normal in size and homogeneous in enhancement without focal lesion. KIDNEYS: Mild left hydronephrosis and hydroureter are present, secondary to a 3 mm distal left ureteral calculus. The left kidney demonstrates delayed enhancement consistent with obstructive uropathy. Right kidney is normal in size and enhancement with a 2 mm nonobstructive renal calculus. No additional renal mass, stone, or hydronephrosis is identified. GIT /T/ PERITONEAL CAVITY: Stomach and small bowel loops are normal in caliber without wall thickening or obstruction. Colon is normal in caliber without wall thickening or surrounding inflammatory change. No CT evidence of enteritis, colitis, or acute appendicitis. No free intraperitoneal air or free fluid. LYMPHNODES: No pathologic abdominal or pelvic lymphadenopathy is identified. RETROPERITONEUM: Adrenal glands are normal in size and morphology. Abdominal aorta and its major branches are normal in course and caliber without aneurysm. IVC and portal venous system appear patent. PELVIS: Urinary bladder is adequately distended with smooth contour and no wall thickening or intraluminal filling defect. Reproductive organs appear unremarkable as visualized. MUSCULOSKELETAL: No acute osseous abnormality or aggressive osseous lesion is identified. Chronic fracture with cement fixation is noted in the left iliac crest. OTHER: Visualized abdominal wall and paraspinal soft tissues are unremarkable. IMPRESSION: * Mild left hydroureteronephrosis due to a 3 mm distal left ureteral calculus with delayed enhancement of the left kidney, consistent with obstructive uropathy and concordant with the reported left flank pain. Recommend clinical correlation with renal function and pain severity; urology consultation and conservative management (analgesia, hydration, and medical expulsive therapy where appropriate) are typically considered, with short-interval follow-up if symptoms or obstruction persist. * Small nonobstructive 2 mm right renal calculus, compatible with bilateral nephrolithiasis. Boiler Maker regarding hydration and stone-prevention measures as clinically appropriate. * No CT evidence of appendicitis, bowel obstruction, abdominal aortic aneurysm, or other acute intra-abdominal or pelvic process apart from the left ureteral stone. * Chronic fracture with cement fixation in the left iliac crest, an incidental post-treatment finding without acute complication on this study. /[place]
[2025-06-07 14:31] LABS: APPEARANCE,URINE CLEAR (CLEAR); GLUCOSE, URINE (UA) NEGATIVE (NEGATIVE); LEUKOCYTE ESTERASE ,URINE NEGATIVE Leu/uL (NEGATIVE); NITRATE,URINE NEGATIVE (NEGATIVE); OCCULT BLOOD,URINE MODERATE (NEGATIVE)
[2025-06-07 14:45] LABS: SQUAMOUS EPITHELIAL CELL,UR None Seen /HPF (0-2)
[2025-06-07] MEDS: ORPHENADRINE 60MG/2ML IM ONE (15:11)
[2025-06-07] MEDS ORDERED: CEPH500B PO (15:37)
[2025-06-07] MEDS ORDERED: KETO10TA2 PO (15:37)
[2025-06-07 15:42] VITALS: BP 118/77; PULSE 74; RESP 19; TEMP 97.9; O2SAT 99
[2025-06-08] MEDS ORDERED: tamsulosin PO (22:45)
== END 2025-06-07 15:45 | disposition home or self-care (01) ==
LOC: EDH 12:36
DX: N13.2 Hydronephrosis with renal and ureteral calculous obstruction (principal); Z87.442 Personal history of urinary calculi
CPT/HCPCS: 99285; 74177; 96374; 96361; 96375; 80048; 85027; 81001; 36415; 96372; J1885; J2270; J7030 ×2; Q9967; J2360

== ENCOUNTER 2025-06-08 20:53 | Emergency (ER) | payer OTHER ==
[~2025-06-08] VITALS: Ht 172.7 cm; Wt 91.6 kg
[~2025-06-08 20:53] MED LIST changes: +CEPH500B PO; -HYDR-4060 PO; -IBUP-2070 PO; -IBUP-2077 PO; +KETO10TA2 PO; -ONDA-243 PO; -POLY17PO4 PO; -TAMS-55 PO
[2025-06-08 20:55] VITALS: BP 118/84; PULSE 82; RESP 20; TEMP 97.2
[2025-06-08] MEDS: 0.9%NACL 1000ML 1,000 ML IV ONE (21:22)
--- NOTE | 2025-06-08 22:33 | ERN ---
ED Note History of Present Illness Stated Complaint: C/O LEFT FLANK PAIN, HX OF KIDNEY STONES Chief Complaint: Flank Pain Time Seen by MD: 20:56 Time Seen by Midlevel: 20:56 Dictation: The patient is a 30-year-old male who presents to the emergency department with complaints of left flank pain. Patient reports he was seen here yesterday and was diagnosed with a kidney but reports he did not picker operator his prescriptions. Patient denies any fevers, denies any vomiting or any other associated symptoms. Allergies: Coded Allergies: No Known Drug Allergies (Unverified Allergy, Unknown, 11/27/23) Home Meds Active Scripts Ketorolac Tromethamine (Ketorolac Tromethamine) 10 Mg Tablet, 1 TAB PO Q6HPRN PRN for pain for 5 Days, #20 TAB 0 Refills Prov:HENRRY MCGEE MD 06/07/25 Cephalexin Monohydrate (Keflex) 500 Mg Cap, 1 CAP PO BID for 10 Days, #20 CAP 0 Refills Prov:HENRRY MCGEE MD 06/07/25 Past Medical History Past Medical History: No Pertinent History Surgical History: Other Family History: Negative Social History: Negative, Lives with family RN Note Reviewed/Agreed w/PFSH: Yes Review of System Dictation Constitutional: Negative for fever,chills, and weight loss Eyes: Negative for injury, pain,redness, and discharge ENT: Negative for injury,pain or swelling Cardiovascular: Negative for chest pain, palpitations, and edema Respiratory: Negative for shortness of breath, cough, and wheezing, Abdomen/GI: Negative for abdominal pain, nausea, vomiting, diarrhea, and constipation Back: Positive for left flank pain : Negative for injury, bleeding and discharge MS/Extremity: Negative for injury and deformity Skin: Negative for rash, and discoloration Neuro: Negative for headache, weakness, numbness, tingling, and seizure Psych: Negative for suicide ideation, homicidal ideation, and hallucinations Initial Vital Sign VS Vital Signs Date Time Temp Pulse Resp B/P (MAP) Pulse Ox O2 Delivery O2 Flow Rate FiO2 06/08/25 20:55 97.2 82 20 118/84 100 Room Air Physical Exam Dictation Vital Signs reviewed General Appearance: Alert, oriented x 3, no acute distress, well developed, nourished. Head and Face: non-traumatic. Eyes: PERRL, pink conjunctivas, eyelid no trauma, anterior chamber with arcus senilis. Ears: Pinnas intact and no signs of trauma or erythema ear canals clear and no discharge TM no erythema Nose: No discharge, no bleeding. Oropharynx: Mouth normal, tongue pink. pharynx clear,no erythema, tonsils no exudates, no abscesses noted, mucous membrane moist Neck: Supple, non-tender, no thyromegaly, no masses, no JVD, no bruits Breast:Deferred Chest:No tenderness, no crepitus, no paradoxical movement, no retractions Lungs:Clear, well-ventilated, symmetric, no rales, no wheezing, no rhonchi, no stridor, good breath sounds bilaterally Heart: Regular rate, regular rhythm, no murmur, no gallops Vascular: no peripheral edema, Abdomen: Soft, positive bowel sounds, nondistended, no guarding, nontender, no rebound, no masses no hepatomegaly, no splenomegaly, no Ferrara's sign, no hernias. Rectal: Deferred Genital: Deferred Neurological: Normal speech, motor function intact, sensory function intact Musculoskeletal: Neck nontender, full range of motion, back nontender, full range of motion, Extremities: nontender, full range of motion Skin: Color pink, dry, no turgor, no rash, no lacerations, no abrasions, no contusions. Lymphatic: Deferred Results (Laboratory/Radiology) Labs Reviewed?: Yes ED Course ED Course Orders Procedure Category Date Status Time Ketorolac PHA 06/08/25 Complete Tromethamine 30mg/Ml 21:30 Tamsulosin Hcl PHA 06/08/25 Complete (Flomax) 21:30 0.9%Nacl 1000ml (Ns PHA 06/08/25 Complete 1000ml) 21:30 Current Medications Medications (Trade) Dose Ordered Sig/Elisabeth Route PRN Reason Start Time Stop Time Status Last Admin Dose Admin Ketorolac Tromethamine (toRADol) 30 mg ONCE ONCE IVP 06/08/25 21:30 06/08/25 21:31 DC 06/08/25 21:22 Sodium Chloride 1,000 ml @ 0 mls/hr ONCE ONCE IV 06/08/25 21:30 06/08/25 21:31 DC 06/08/25 21:22 Tamsulosin HCl (FloMAX) 0.4 mg ONCE ONCE PO 06/08/25 21:30 06/08/25 21:31 DC 06/08/25 21:21 Vital Signs Date Time Temp Pulse Resp B/P (MAP) Pulse Ox O2 Delivery O2 Flow Rate FiO2 06/08/25 20:55 97.2 82 20 118/84 100 Room Air Medical Decision Making MDM The patient is a 30-year-old male who presents to the emergency department with complaints of left flank pain. Patient reports he was seen here yesterday and was diagnosed with a kidney but reports he did not picker operator his prescriptions. Patient denies any fevers, denies any vomiting or any other associated symptoms. I reviewed patient's laboratories from yesterday. Patient with no leukocytosis, normal renal function, urinalysis with no leukocyte esterase or nitrites. CT abdomen showed mild left hydroureteronephrosis with a 3 mm kidney stone. Patient reports he did not picker operator his prescriptions. Patient treated with IV medications and fluids. Patient reports that his pain is gone. Patient instructed on the importance of picking up his prescription. Patient will be referred to urologist. On physical exam patient is in no acute distress nontoxic appearance, stable vital signs. We will start patient on Flomax. Differential diagnosis: Kidney stones, muscle strain, UTI Need for hospitalization: Patient does not meet criteria for hospitalization. There are no social concerns with this patient. DX & DISP Disposition: Discharge Departure Impression: Primary Impression: Left ureteral calculus Condition: Stable Scripts [tamsulosin] No Conflict Check 0.4 MG PO DAILY for 15 Days, #15 TAB 0 Refills Prov: LUZ MARIA FULTON MAPPER 06/08/25 Additional Instructions: It is important that you picker operator your prescriptions from her pharmacy. Follow up with Urology as soon as possible. If anything worsens please return to ER. Strain your urine kidney stone passage FOLLOW-UP WITH PRIMARY CARE PROVIDER IN 1 TO 2 DAYS. TAKE MEDICATIONS DIRECTED HERE IN THE EMERGENCY ROOM. OKAY TO CONTINUE HOME MEDICATIONS UNLESS OTHERWISE DISCUSSED DURING YOUR VISIT IN THE EMERGENCY ROOM TODAY. RETURN TO YOUR NEAREST EMERGENCY ROOM IF SYMPTOMS WORSEN OR IF THERE IS NO IMPROVEMENT. CALL 911 IF YOU NEED IMMEDIATE ASSISTANCE. TAKE TYLENOL [id number] NEEDED AND IF NO CONTRAINDICATIONS ARE PRESENT. INCREASE ORAL HYDRATION. A WOUND CULTURE OR URINE CULTURE WAS ORDERED HERE IN THE EMERGENCY ROOM DEPARTMENT PLEASE FOLLOW-UP WITH PRIMARY CARE PROVIDER AND ADVISE THEM TO GET REPEAT PORTS FROM OUR FACILITY. IF YOU HAD ANY KENYATTA WRAP/SPLINTS THAT WERE APPLIED HERE, PLEASE DO NOT REMOVE THEM UNTIL YOU SEE YOUR PRIMARY CARE OR SPECIALTY. Referrals: JOE GHOTRA MD (PCP) CRISTIANO SANFORD MD Time of Disposition: 22:30 I have reviewed the case, and I agree with, Diagnosis and Plan LUZ MARIA FULTON [facility] Jun 08, 2025 22:33
[2025-06-08] MEDS ORDERED: tamsulosin PO (22:45)
== END 2025-06-08 22:51 | disposition home or self-care (01) ==
LOC: EDH 20:53
DX: N13.2 Hydronephrosis with renal and ureteral calculous obstruction (principal); Z87.442 Personal history of urinary calculi
CPT/HCPCS: 99283; 96374; J1885; J7030; 96361